=== PATIENT | female | born 1990 | race Caucasian/White ===

== ENCOUNTER 2016-11-13 09:41 | Emergency (ER) | payer BC ==
[~2016-11-13] VITALS: Ht 162.6 cm; Wt 101.3 kg
[~2016-11-13 09:41] MED LIST: ALBUTEROL SULF8.5 GM IH; ARIPIPRAZOLE5 MG PO; AZITHROMYCIN250 MG1 PO; BACTRIM,SEPT1 TABLET PO; BUSPAR10 MG PO; BUSPAR15 MG PO; CARAFATE100 MG/ML PO; CLINDAMYCIN HC300 MG PO; DEPAKOTE500 MG PO; FLEXERIL10 MG PO; HYDROCODON-ACE1 EAC7 PO; KEFLEX500 MG PO; LODINE400 MG PO; MOTRIN600 MG PO; MOTRIN800 MG PO; MUCINEX PO; NAPROSYN500 MG PO; NEURONTIN400 MG PO; NOHOMEMEDS; PEN-VEE K,VEET500 MG PO; PERCOCET 5/31 TABLET PO; PHENERGAN-CODE120 ML PO; RANITIDINE HCL150 MG PO; SERTRALINE HCL100 MG PO; SERTRALINE HCL50 MG PO; SYMBYAX 6-25 M1 EACH PO; TESSALON PERLE PO; TORADOL10 MG PO; TRAMADOL HCL50 MG; TRAZODONE HCL50 MG PO; TYLENOL EXTRA500 MG PO; TYLENOL WITH C1 EACH PO; ULTRAM50 MG PO; ZITHROMAX Z-PA250 MG PO; ZOLOFT100 MG PO
[2016-11-13 11:00] LABS: HEMATOCRIT 39.6 % (36.0-46.0); MCH 28.5 PG (29.0-34.0); MCHC 34.3 G/DL (30.0-36.0); MCV 82.8 FL (83-99); MEAN PLAT.VOLUME 10.3 uM^3 (9.5-12.4); PLATELET COUNT 267 K/uL (156-360); RBC DIS.WIDTH-CV 12.4 % (11.8-14.6); RBC DIS.WIDTH-SD 37.8 % (39-53); RED BLOOD COUNT 4.78 M/uL (3.80-5.20); WHITE BLOOD COUNT 9.5 K/uL (4.1-10.2)
[2016-11-13 11:20] LABS: CHLORIDE 104 mEq/L (99-109); POTASSIUM 3.7 mEq/L (3.7-5.4); SODIUM 137 mEq/L (136-147)
[2016-11-13 11:22] LABS: QUANTITATIVE HCG < 4.0 MIU/ML
[2016-11-13 11:23] LABS: ANION GAP 11 MEQ/L (2-14)
[2016-11-13 11:24] LABS: TOTAL BILIRUBIN 0.3 mg/dL (0.0-1.0)
[2016-11-13 11:25] LABS: ALKALINE PHOSPHATASE 64 IU/L (3-129)
[2016-11-13 11:26] LABS: GFR ESTIMATE (CALCULATED) > 59 mL/min/
[2016-11-13 11:27] LABS: DIRECT BILIRUBIN 0.2 mg/dL (0.0-0.3); UREA NITROGEN (BUN) 9 mg/dL (9-23)
[2016-11-13 11:29] LABS: LIPASE 8 U/L (1.0-51.0)
[2016-11-13 11:31] LABS: ADD MIUA? YES; BILIRUBIN NEGATIVE; BLOOD NEGATIVE; COLOR YELLOW ((YELLOW)); GLUCOSE (STRIP) NEGATIVE; KETONES NEGATIVE; LEUKOCYTES NEGATIVE; NITRITE NEGATIVE; PROTEIN (STRIP) NEGATIVE; SPECIFIC GRAVITY 1.019 (1.000-1.030); UROBILINOGEN 0.2 MG/DL (0.2-1.0)
[2016-11-13 11:36] LABS: BACTERIA RARE /HPF; EPITHELIAL CELLS RARE /HPF; MUCUS TRACE /LPF; RED BLOOD CELLS 0-5 /HPF (0-5); UCUL ADDED? NO; WHITE BLOOD CELLS 0-5 /HPF (0-5)
[2016-11-13 11:40] LABS: GLUCOSE 98 mg/dL (70-99)
[2016-11-13] MEDS ORDERED: ZOFRAN ODT4 MG PO (14:27)
[2016-11-13] MEDS ORDERED: PERCOCET 5/31 TABLET PO (14:27)
[2016-11-13 14:43] VITALS: BP 100/71
== END 2016-11-13 14:43 | disposition home or self-care (01) ==
LOC: EME 09:41
DX: Q43.8 Other specified congenital malformations of intestine (principal); K63.89 Other specified diseases of intestine; R10.9 Unspecified abdominal pain; R11.0 Nausea; K21.9 Gastro-esophageal reflux disease without esophagitis; J45.909 Unspecified asthma, uncomplicated; I10 Essential (primary) hypertension; Z87.891 Personal history of nicotine dependence
CPT/HCPCS: 74000; 74177; 80048; 80076; 81003; 83690; 84702; 85027; 99281; 99285; J7030

== ENCOUNTER 2017-01-11 02:18 | Emergency (ER) | payer BC ==
[~2017-01-11] VITALS: Ht 162.6 cm; Wt 101.4 kg
[~2017-01-11 02:18] MED LIST changes: +ZOFRAN ODT4 MG PO
[2017-01-11] MEDS ORDERED: BACTRIM,SEPT1 TABLET PO (04:30)
[2017-01-11 04:44] VITALS: BP 148/95
== END 2017-01-11 04:44 | disposition home or self-care (01) ==
LOC: EME 02:18
PROC: 0H9JXZZ Drainage of Left Upper Leg Skin, External Approach (ICD-10-PCS; principal; 2017-01-11)
DX: L02.416 Cutaneous abscess of left lower limb (principal); F17.200 Nicotine dependence, unspecified, uncomplicated
CPT/HCPCS: 99281; 99283

== ENCOUNTER 2017-03-02 11:03 | Day surgery (SDC) | payer BC ==
[~2017-03-02] VITALS: Ht 162.6 cm; Wt 104.5 kg
[~2017-03-02 11:03] MED LIST changes: +MINOCIN100 MG PO
[2017-03-02 11:32] VITALS: BP 119/70
[2017-03-02] MEDS ORDERED: MOTRIN600 MG PO (14:14)
[2017-03-02] MEDS ORDERED: NORCO 5/3251 TABLET PO (14:14)
[2017-03-02 14:40] VITALS: BP 111/73
[2017-03-02 15:25] VITALS: BP 120/74
[2017-03-02 15:40] LABS: INTERNAL CONTROL VALID? YES
== END 2017-03-02 15:45 | disposition home or self-care (01) ==
LOC: SDC 11:03
PROVIDERS: Surgery
PROC: 0JBC0ZZ Excision of Pelvic Region Subcutaneous Tissue and Fascia, Open Approach (ICD-10-PCS; principal; 2017-03-02)
DX: L73.2 Hidradenitis suppurativa (principal); J45.909 Unspecified asthma, uncomplicated; F32.9 Major depressive disorder, single episode, unspecified; F41.1 Generalized anxiety disorder; F17.200 Nicotine dependence, unspecified, uncomplicated; E66.9 Obesity, unspecified; Z68.38 Body mass index [BMI] 38.0-38.9, adult
CPT/HCPCS: 84703; 88305; J0690; J1100; J2250; J2405; J3010; S0020

== ENCOUNTER 2017-10-09 00:40 | Emergency (ER) | payer BC ==
[~2017-10-09] VITALS: Ht 162.6 cm; Wt 95.8 kg
[~2017-10-09 00:40] MED LIST changes: +NORCO 5/3251 TABLET PO
[2017-10-09 01:58] VITALS: BP 132/78
== END 2017-10-09 01:59 | disposition home or self-care (01) ==
LOC: EME 00:40
DX: S40.022A Contusion of left upper arm, initial encounter (principal); W22.09XA Striking against other stationary object, initial encounter; F41.9 Anxiety disorder, unspecified; F32.9 Major depressive disorder, single episode, unspecified; F17.200 Nicotine dependence, unspecified, uncomplicated; Z91.048 Other nonmedicinal substance allergy status
CPT/HCPCS: 73090; 99281; 99283